=== PATIENT | female | born 1990 | race Hispanic/Latino ===

== ENCOUNTER 2021-11-13 13:28 | Emergency (ER) | payer OTHER ==
[2021-11-13] MEDS ORDERED: Ibuprofen 800 MG TAB ONE (13:48)
== END 2021-11-13 14:22 | disposition home or self-care (01) ==
LOC: NAV ERS 13:28
DX: S16.1XXA Strain of muscle, fascia and tendon at neck level, initial encounter (principal); S29.012A Strain of muscle and tendon of back wall of thorax, initial encounter; S50.11XA Contusion of right forearm, initial encounter; S20.20XA Contusion of thorax, unspecified, initial encounter; S80.02XA Contusion of left knee, initial encounter; V43.63XA Car passenger injured in collision with pick-up truck in traffic accident, initial encounter